=== PATIENT | female | born 1970 | race African-American/Black ===

== ENCOUNTER 2018-08-26 12:19 | Emergency (ER) | payer MEDICAID, OTHER ==
[~2018-08-26] VITALS: Ht 157.5 cm; Wt 79.0 kg
[2018-08-26] MEDS ORDERED: ACETAMINOPHEN 325MG TABLET PO ONE (15:15)
[2018-08-26] MEDS ORDERED: IBUPROFEN 600MG TABLET PO ONE (15:15)
[2018-08-26 15:39] VITALS: BP 120/82
== END 2018-08-26 15:40 | disposition home or self-care (01) ==
LOC: ER 15:07
DX: S76.011A Strain of muscle, fascia and tendon of right hip, initial encounter (principal); S76.911A Strain of unspecified muscles, fascia and tendons at thigh level, right thigh, initial encounter; M54.30 Sciatica, unspecified side; X58.XXXA Exposure to other specified factors, initial encounter; Y93.02 Activity, running; Y92.89 Other specified places as the place of occurrence of the external cause
CPT/HCPCS: 99283